=== PATIENT | male | born 1940 | race Caucasian/White ===

== ENCOUNTER → 2016-09-17 | Outpatient (CLI) | payer MEDICARE, OTHER | END | disposition home or self-care (01) | LOC: CFH 15:19 | PROVIDERS: ATTEND Family Medicine | DX: R22.43 Localized swelling, mass and lump, lower limb, bilateral (principal) | CPT/HCPCS: 93970 ==

== ENCOUNTER → 2016-09-27 | Outpatient (CLI) | payer MEDICARE, OTHER | END | disposition home or self-care (01) | LOC: CFH 08:10 | PROVIDERS: ATTEND Family Medicine | DX: R16.1 Splenomegaly, not elsewhere classified (principal); I86.8 Varicose veins of other specified sites; Z90.49 Acquired absence of other specified parts of digestive tract | CPT/HCPCS: 76700 ==

== ENCOUNTER → 2016-10-11 | Outpatient (CLI) | payer MEDICARE, OTHER | END | disposition home or self-care (01) | LOC: CVU 14:22 | PROVIDERS: ATTEND Family Medicine | DX: R60.9 Edema, unspecified (principal) | CPT/HCPCS: 93306 ==

== ENCOUNTER 2016-12-02 12:55 | Day surgery (SDC) | payer MEDICARE, OTHER ==
[~2016-12-02] VITALS: Ht 167.6 cm; Wt 109.5 kg
[2016-12-02 13:29] VITALS: BP 106/61
[2016-12-02] MEDS ORDERED: SODIUM CHLORIDE 0.9% 1,000 ML IV SCH (13:30)
[2016-12-02] MEDS ORDERED: LIDOCAINE 1%, 20ML ONE (13:52)
[2016-12-02] MEDS ORDERED: FENTANYL PF 100 MCG/2ML ONE ×2 (14:24→15:09)
[2016-12-02] MEDS ORDERED: MIDAZOLAM 1 MG/ML, 5ML ONE (14:24)
== END 2016-12-02 17:25 | disposition home or self-care (01) ==
LOC: OUT 12:55
DX: K76.6 Portal hypertension (principal); Z87.891 Personal history of nicotine dependence
CPT/HCPCS: 36415; 47000; 76942; 85610; 88307; 88313; 99156; 99157; J2250; J3010; J3490; J7030

== ENCOUNTER → 2017-10-26 | Outpatient (CLI) | payer MEDICARE, OTHER | END | disposition home or self-care (01) | LOC: CFH 14:24 | PROVIDERS: ATTEND Family Medicine | DX: J98.4 Other disorders of lung (principal); R06.02 Shortness of breath | CPT/HCPCS: 71250 ==

== ENCOUNTER → 2018-01-30 | Outpatient (CLI) | payer MEDICARE, OTHER | END | disposition home or self-care (01) | LOC: CFH 11:15 | PROVIDERS: ATTEND Family Medicine | DX: M19.012 Primary osteoarthritis, left shoulder (principal) ==